=== PATIENT | male | born 1980 | race Caucasian/White ===

== ENCOUNTER 2018-11-04 17:26 | Emergency (ER) | payer SELFPAY ==
[~2018-11-04] VITALS: Ht 165.1 cm; Wt 68.0 kg
[2018-11-04 19:46] VITALS: BP 137/98
[2018-11-04] MEDS ORDERED: FLUORESCEIN SODIUM 1MG/STRIP OP ONE (20:00)
[2018-11-04] MEDS ORDERED: TETRACAINE 0.5% OPHTH DROPS 4ML OP ONE (20:00)
== END 2018-11-04 21:06 | disposition home or self-care (01) ==
LOC: ER 17:26
DX: T15.01XA Foreign body in cornea, right eye, initial encounter (principal); X58.XXXA Exposure to other specified factors, initial encounter; Y93.89 Activity, other specified; Y92.89 Other specified places as the place of occurrence of the external cause
CPT/HCPCS: 65220; 99284

== ENCOUNTER 2024-12-15 07:11 | Emergency (ER) | payer MEDICAID ==
[~2024-12-15] VITALS: Ht 157.5 cm; Wt 79.0 kg
[2024-12-15 07:31] VITALS: O2SAT 81
[2024-12-15] MEDS: FLUORESCEIN SODIUM 1MG/STRIP EACHEYE ONE (08:16)
[2024-12-15] MEDS: TETRACAINE 0.5% OPHTH DROPS 4ML RIGHTEYE STA (08:17)
[2024-12-15] MEDS ORDERED: TRIMO RIGHTEYE (08:48)
[2024-12-15 09:03] VITALS: BP 132/94; PULSE 75; RESP 16; TEMP 36.7; O2SAT 99
== END 2024-12-15 09:09 | disposition home or self-care (01) ==
LOC: ER 07:11
DX: H57.89 Other specified disorders of eye and adnexa (principal); H57.11 Ocular pain, right eye; Z79.899 Other long term (current) drug therapy
CPT/HCPCS: 99283